=== PATIENT | male | born 1985 | race Caucasian/White ===

== ENCOUNTER 2016-08-15 20:47 | Emergency (ER) | payer SELFPAY ==
[~2016-08-15] VITALS: Ht 177.8 cm; Wt 65.9 kg
[~2016-08-15 20:47] MED LIST: NOHOMEMEDS
[2016-08-15 23:13] VITALS: BP 125/80
== END 2016-08-15 23:14 | disposition home or self-care (01) ==
LOC: EME 20:47
DX: T40.1X1A Poisoning by heroin, accidental (unintentional), initial encounter (principal); F10.10 Alcohol abuse, uncomplicated; F17.200 Nicotine dependence, unspecified, uncomplicated
CPT/HCPCS: 99281; 99284; J2310